=== PATIENT | female | born 1950 | race Caucasian/White ===

== ENCOUNTER → 2017-01-21 | Outpatient (CLI) | payer MEDICARE ==
[~2017-01-21] MED LIST: ALIGN PO; AMBIEN CR 12.12.5 MG PO; ASPIRIN E.C. 8181 MG PO; CLARAVIS20 MG PO; FLONASEALLERGY NS; GENTEAL0.32 OP; LOVAZA1 GM PO; MULTIVITAMIN FO1 CAP PO; NEURONTIN300 MG/CAP PO; NIACIN500 M3 PO; NORVASC 10MG10 MG PO; OCUVITE1 TA1 PO; PRAVACHOL 20MG20 MG PO; PREVACID 15MG15 M1 PO; REFRESH TEARS 330 ML OP; THERA TABS1 TA1 PO; THERA TABS1 TAB PO; TRILIPIX 135MG PO; ZYRTEC 10MG10 MG PO; [UNRECOGNIZED DRUG - OTHER] PO
== END ==
LOC: MHCPAIN 11:37
DX: G89.29 Other chronic pain (principal); M47.22 Other spondylosis with radiculopathy, cervical region
CPT/HCPCS: G0463

== ENCOUNTER → 2017-05-13 | Outpatient (CLI) | payer MEDICARE | LOC: MC.RAD 09:31 | DX: Z12.31 Encounter for screening mammogram for malignant neoplasm of breast (principal) ==

== ENCOUNTER 2017-08-10 14:53 | Outpatient (CLI) | payer MEDICARE ==
[~2017-08-10] VITALS: Ht 172.7 cm; Wt 82.7 kg
[2017-08-10 15:18] VITALS: BP 129/50; PULSE 76; TEMP 98.5
[2017-08-10] MEDS ORDERED: PRINIVIL40 MG PO (15:33)
[2017-08-10] MEDS ORDERED: EPA FISH OIL1 SGL PO (15:33)
== END 2017-08-10 16:26 | disposition home or self-care (01) ==
LOC: EUO 14:53
DX: M81.0 Age-related osteoporosis without current pathological fracture (principal)
CPT/HCPCS: J3489

== ENCOUNTER → 2018-05-14 | Outpatient (CLI) | payer MEDICARE ==
[~2018-05-14] MED LIST changes: +EPA FISH OIL1 SGL PO; +PRINIVIL40 MG PO
== END ==
LOC: MC.RAD 13:03
DX: Z12.31 Encounter for screening mammogram for malignant neoplasm of breast (principal)

== ENCOUNTER 2018-08-13 13:54 | Outpatient (CLI) | payer MEDICARE ==
[~2018-08-13] VITALS: Ht 172.7 cm; Wt 75.5 kg
[2018-08-13 14:00] VITALS: BP 143/68; PULSE 74; TEMP 98.2
== END 2018-08-13 14:45 | disposition home or self-care (01) ==
LOC: EUO 13:54
DX: M81.0 Age-related osteoporosis without current pathological fracture (principal)
CPT/HCPCS: J3489

== ENCOUNTER → 2019-08-01 | Outpatient (CLI) | payer MEDICARE | LOC: MC.RAD 10:00 | DX: Z12.31 Encounter for screening mammogram for malignant neoplasm of breast (principal) ==

== ENCOUNTER → 2020-08-03 | Outpatient (CLI) | payer MEDICARE | LOC: MC.RAD 10:40 | DX: Z12.31 Encounter for screening mammogram for malignant neoplasm of breast (principal) ==

== ENCOUNTER 2020-09-17 10:00 | Outpatient (RCR) | payer MEDICARE | END 2020-10-01 | disposition home or self-care (01) | LOC: WSPT | DX: C50.919 Malignant neoplasm of unspecified site of unspecified female breast (principal); Z90.11 Acquired absence of right breast and nipple ==

== ENCOUNTER → 2021-09-11 | Outpatient (CLI) | payer MEDICARE | LOC: MC.RAD 11:03 | DX: Z12.31 Encounter for screening mammogram for malignant neoplasm of breast (principal) ==

== ENCOUNTER 2022-04-27 18:11 | Emergency (ER) | payer MEDICARE ==
[~2022-04-27] VITALS: Ht 172.7 cm; Wt 81.8 kg
[2022-04-27 18:24] VITALS: TEMP 98
[2022-04-27 19:00] VITALS: BP 140/78; PULSE 76
== END 2022-04-27 19:00 | disposition home or self-care (01) ==
LOC: COL.ER 18:11
DX: S69.92XA Unspecified injury of left wrist, hand and finger(s), initial encounter (principal); Z28.310 Unvaccinated for COVID-19; X58.XXXA Exposure to other specified factors, initial encounter

== ENCOUNTER → 2022-05-22 | Outpatient (CLI) | payer MEDICARE | LOC: MC.RAD 13:39 | DX: N64.9 Disorder of breast, unspecified (principal) ==

== ENCOUNTER 2022-07-29 16:24 | Emergency (ER) | payer MEDICARE ==
[~2022-07-29] VITALS: Ht 172.7 cm; Wt 85.9 kg
[2022-07-29 16:31] VITALS: BP 175/76; PULSE 96; TEMP 98.7
== END 2022-07-29 17:56 | disposition home or self-care (01) ==
LOC: COL.ER 16:24
DX: S90.212A Contusion of left great toe with damage to nail, initial encounter (principal); W01.0XXA Fall on same level from slipping, tripping and stumbling without subsequent striking against object, initial encounter; Y92.59 Other trade areas as the place of occurrence of the external cause; Y99.0 Civilian activity done for income or pay

== ENCOUNTER → 2023-01-21 | Outpatient (CLI) | payer MEDICARE | LOC: MC.RAD 09:25 | DX: Z12.31 Encounter for screening mammogram for malignant neoplasm of breast (principal) ==

== ENCOUNTER → 2023-12-10 | Outpatient (CLI) | payer MEDICARE | LOC: COL.RAD 08:22 | DX: K76.0 Fatty (change of) liver, not elsewhere classified (principal); R76.0 Raised antibody titer ==